=== PATIENT | male | born 1955 | race Caucasian/White ===

== ENCOUNTER 2025-04-26 12:32 | Emergency (ER) | payer BC, OTHER ==
[2025-04-26 12:58] VITALS: BP 158/66; PULSE 70; RESP 20; TEMP 98.1; BMI 25.8
[2025-04-26 15:20] LABS: HEMATOCRIT 43.3 % (40.1-51.0); HEMOGLOBIN 14.5 g/dL (13.7-17.5); MCHC 33.5 g/dl (32.3-36.5); MEAN CELL VOLUME 97.1 fl (79.0-92.2); MEAN PLT VOLUME 10.3 fl (9.4-12.4); PLATELET COUNT 279 x10^3/uL (163-337); RDW 13.1 % (12.2-16.4)
[2025-04-26 15:41] LABS: URINE APPEARANCE CLEAR; URINE BILIRUBIN NEGATIVE (NEGATIVE); URINE COLOR YELLOW; URINE GLUCOSE (UA) NEGATIVE (NEGATIVE); URINE KETONE NEGATIVE (NEGATIVE); URINE LEUK ESTERASE NEGATIVE (NEGATIVE); URINE NITRITE NEGATIVE (NEGATIVE); URINE PROTEIN NEGATIVE (NEGATIVE); URINE UROBILINOGEN 0.2 mg/dL (0.2-1.0)
[2025-04-26 15:55] LABS: ABSOLUTE IMMATURE GRANULOCYTES 0.01 x10^3/uL (0.0-0.031); BASOPHILS # 0.02 x10^3/uL (0.01-0.08); EOSINOPHIL % 2.3 % (0.8-7.0); EOSINOPHILS # 0.13 x10^3/uL (0.04-0.54); HEMATOCRIT 42.6 % (40.1-51.0); HEMOGLOBIN 14.3 g/dL (13.7-17.5); MCHC 33.6 g/dl (32.3-36.5); MEAN CELL VOLUME 96.6 fl (79.0-92.2); MEAN PLT VOLUME 9.7 fl (9.4-12.4); MONOCYTE # 0.37 x10^3/uL (0.30-0.82); MONOCYTE % 6.5 % (5.3-12.2); PLATELET COUNT 282 x10^3/uL (163-337); RDW 11.8 % (12.2-16.4)
[2025-04-26 16:31] LABS: BLOOD UREA NITROGEN 13.7 mg/dL (7-18); CALCIUM 9.1 mg/dL (8.5-10.1); CREATININE 0.8 mg/dL (0.55-1.3); POTASSIUM 3.8 mmol/L (3.5-5.1); TOT PROT 6.8 g/dl (6.4-8.2)
[2025-04-26 16:56] LABS: ALBUMIN 3.3 g/dl (3.4-5.0)
== END 2025-04-26 19:15 | disposition home or self-care (01) ==
LOC: JER 12:32
DX: T85.520A Displacement of bile duct prosthesis, initial encounter (principal); Y83.1 Surgical operation with implant of artificial internal device as the cause of abnormal reaction of the patient, or of later complication, without mention of misadventure at the time of the procedure
CPT/HCPCS: 36415; 74177-TC; 80053; 81003; 83690; 85025; 85027; 99285-25; Q9967

== ENCOUNTER → 2025-04-28 | Day surgery (SDC) | payer BC | END | disposition home or self-care (01) | LOC: JRADIR 09:46 | PROVIDERS: ATTEND Nurse Practitioner Family | PROC: BF12YZZ Fluoroscopy of Gallbladder using Other Contrast (ICD-10-PCS; principal; 2025-04-28) | DX: K80.20 Calculus of gallbladder without cholecystitis without obstruction (principal) | CPT/HCPCS: 47531 ==

== ENCOUNTER → 2025-06-19 | Day surgery (SDC) | payer BC ==
[2025-06-15 17:38] VITALS: BMI 25.5
[~2025-06-19] MED LIST: HEPARIN NA (PORCINE) 5,000 UNITS/ML 1ML VIAL ONE; LIDOCAINE HCL/PF 2% SDV 5ML VIAL ONE; MIDAZOLAM HCL 2 MG/2 ML SINGLE DOSE VIAL ONE; ONDANSETRON 4 MG/2 ML VIAL IVPUSH PRN; ONDANSETRON 4 MG/2 ML VIAL ONE; PROPOFOL 20 ML ONE; ROCURONIUM BROMIDE 50 MG/5 ML SYRINGE ONE; SUGAMMADEX SODIUM 200 MG/2 ML VIAL ONE; TRANEXAMIC ACID 1000 MG/10 ML VIAL ONE; cefOXitin SODIUM 2 GM VIAL (RESTRICTED TO ID) IVPB ONE
[2025-06-19] MEDS: cefoTEtan DISODIUM 2 GM VIAL (RESTRICTED TO ID) IVPB ONE
[2025-06-19] MEDS: cefOXitin SODIUM 2 GM VIAL (RESTRICTED TO ID) IVPB ONE (10:40)
[2025-06-19] MEDS: BUPIVACAINE HCL/PF 0.25% (2.5MG/ML) 10 ML VIAL IJ ONE (10:48)
[2025-06-19] MEDS: LACTATED RINGERS SOLUTION 1,000 ML IV SCH (14:11)
[2025-06-19 14:37] VITALS: BP 158/81; PULSE 70; RESP 16; TEMP 97.8
== END | disposition home or self-care (01) ==
LOC: JASU-SURG 06:21
PROVIDERS: ATTEND Surgery
PROC: 8E0W4CZ Robotic Assisted Procedure of Trunk Region, Percutaneous Endoscopic Approach (ICD-10-PCS; 2025-06-19)
PROC: 0FT44ZZ Resection of Gallbladder, Percutaneous Endoscopic Approach (ICD-10-PCS; principal; 2025-06-19 10:45)
DX: K81.9 Cholecystitis, unspecified (principal)
CPT/HCPCS: 47562; S2900; 86850; 86900; 86901; 88304-TC; 94760